=== PATIENT | female | born 1940 | race Caucasian/White ===

== ENCOUNTER 2017-10-26 23:46 | Emergency (ER) | payer OTHER ==
[~2017-10-26] VITALS: Ht 170.2 cm; Wt 98.2 kg
[~2017-10-26 23:46] MED LIST: ALLEGRA ALLERGY60 MG PO; ALLER-EASE180 MG PO; AMLODIPINE BESYL5 M1 PO; BENADRYL25 MG PO; CATAPRES0.1 MG PO; CEROVITE SENIO1 EACH PO; CIPRO500 MG PO; CLOTRIMAZOLE AF30 GM TP; COREG3.125 MG PO; DOXYCYCLINE 10100 MG PO; HYDROCHLOROTH12.5 M1 PO; JANUVIA100 MG PO; KETOCONAZOLE15 GM TOP; LAMISIL250 MG PO; LASIX 40 MG TAB40 M2 PO; LEVEMIR SUBQ; LEVOTHYROXIN0.025 MG PO; LIDOPATCH1 EACH TOP; LISINOPRIL20 MG PO; LOVASTATIN 20 M20 MG PO; MACROBID 100 M100 M1 PO; METFORMIN HCL500 MG PO; NORVASC5 MG PO; NOVOFINE 321 EACH SUBQ; NYAMYC15 GM TOP; OXYBUTYNIN 5 MG5 M2 PO; PERCOCET 5-3251 EACH PO; PRINZIDE 20-251 EACH PO; SYNTHROID50 MCG PO; TESSALON PERLE100 MG PO; TRAZODONE HCL50 MG PO; UNABLE TO REMEMBER; [UNRECOGNIZED DRUG - OTHER] PO
[2017-10-26] MEDS ORDERED: OXYBUTYNIN 5 MG5 M2 PO (23:57)
[2017-10-26] MEDS ORDERED: TESSALON PERLE100 MG PO (23:58)
[2017-10-26] MEDS ORDERED: TRAZODONE HCL50 MG PO (23:58)
[2017-10-26] MEDS ORDERED: ROBAFEN CF SYR118 M1 PO (23:59)
[2017-10-27] MEDS ORDERED: COREG25 MG PO
[2017-10-27] MEDS ORDERED: CEROVITE SENIO1 EACH PO (00:01)
[2017-10-27] MEDS ORDERED: ALLER-EASE180 MG PO (00:01)
[2017-10-27] MEDS ORDERED: HYDRALAZINE 2525 MG PO (00:02)
[2017-10-27] MEDS ORDERED: JANUVIA100 MG PO (00:03)
[2017-10-27] MEDS ORDERED: KETOCONAZOLE15 GM TOP (00:04)
[2017-10-27] MEDS ORDERED: LEVEMIR SUBQ (00:05)
[2017-10-27] MEDS ORDERED: NYSTATIN15 G2 TOP (00:06)
[2017-10-27 00:34] LABS: URINE BILIRUBIN NEGATIVE (Negative); URINE BLOOD NEGATIVE (Negative); URINE CLARITY CLEAR; URINE COLOR YELLOW; URINE GLUCOSE-RANDOM 3+ (Negative); URINE KETONES NEGATIVE (Negative); URINE LEUKOCYTES-REFLEX NEGATIVE (Negative); URINE NITRITE-REFLEX NEGATIVE (Negative); URINE PROTEIN 1+ (Negative); URINE UROBILINOGEN 0.2 E.U./dl (0.2-1.0)
[2017-10-27 02:04] VITALS: BP 128/82
== END 2017-10-27 02:07 | disposition home or self-care (01) ==
LOC: M.ERS 23:46
PROVIDERS: Personal Emergency Response Attendant
DX: R51 Headache (principal); E11.9 Type 2 diabetes mellitus without complications; I10 Essential (primary) hypertension; E78.5 Hyperlipidemia, unspecified; K64.9 Unspecified hemorrhoids; Z88.1 Allergy status to other antibiotic agents; Z88.2 Allergy status to sulfonamides; Z79.4 Long term (current) use of insulin; W18.39XA Other fall on same level, initial encounter; Y93.89 Activity, other specified; Y92.89 Other specified places as the place of occurrence of the external cause; Y99.8 Other external cause status

== ENCOUNTER 2017-11-22 08:29 | Inpatient (IN) | payer OTHER ==
[~2017-11-22] VITALS: Ht 170.2 cm; Wt 100.2 kg
[~2017-11-22 08:29] MED LIST changes: +COREG25 MG PO; +HYDRALAZINE 2525 MG PO; +NYSTATIN15 G2 TOP; +ROBAFEN CF SYR118 M1 PO
[2017-11-22 08:31] VITALS: BP 225/119
[2017-11-22] MEDS ORDERED: CERTAVITE SR-A1 EACH PO (08:45)
[2017-11-22] MEDS ORDERED: CALMOSEPTINE O3.5 GM TOP (08:46)
[2017-11-22] MEDS ORDERED: ROBAFEN100 MG/5 M PO (08:47)
[2017-11-22] MEDS ORDERED: MAPAP500 MG PO (08:47)
[2017-11-22 09:03] LABS: HEMOGLOBIN 15.3 gm/dL (12.0-15.0); MCH 23.9 pg (26.0-34.0); MCHC 31.2 g/dL (28.0-37.0); MCV 76.6 fL (80.0-100.0); MPV 8.8 fl. (7.2-11.1); NUCLEATED RBCS 0 /100WBC; PLATELET COUNT* 424 thou/uL (150-400); RDW-CV 19.5 % (10.5-14.5); WBC 14.2 thou/uL (4.0-11.0)
[2017-11-22 09:05] LABS: ANION GAP 9 mmol/L (7-16); APTT 27.3 Seconds (25.0-31.3); BUN 13 mg/dL (7-18); CALCIUM 9.4 mg/dL (8.5-10.1); CHLORIDE 100 mmol/L (98-107); CO2 27 mmol/L (21-32); CREATININE 0.8 mg/dL (0.6-1.3); GLUCOSE 333 mg/dL (70-99); INR 1.2; POTASSIUM 3.9 mmol/L (3.5-5.1); PROTIME 11.2 Seconds (9.20-11.50); SODIUM 136 mmol/L (136-145)
[2017-11-22 09:10] LABS: URINE BILIRUBIN NEGATIVE (Negative); URINE BLOOD TRACE (Negative); URINE CLARITY SL CLOUDY; URINE COLOR YELLOW; URINE GLUCOSE-RANDOM 3+ (Negative); URINE KETONES NEGATIVE (Negative); URINE LEUKOCYTES-REFLEX TRACE (Negative); URINE NITRITE-REFLEX NEGATIVE (Negative); URINE PROTEIN 3+ (Negative); URINE SPECIFIC GRAVITY 1.015 (1.005-1.030)
[2017-11-22 09:15] LABS: ALBUMIN 3.4 g/dL (3.4-5.0); ALKALINE PHOSPHATASE 85 U/L (46-116); NT-PRO BRAIN NAT PEPTIDE 3915 pg/mL (<300); SGOT 15 U/L (15-37); SGPT 18 U/L (30-65); TOTAL BILIRUBIN 0.8 mg/dL (<0.1-1.0); TOTAL PROTEIN 7.8 g/dL (6.4-8.2); TROPONIN-I LEVEL <0.06 ng/mL (<0.06)
[2017-11-22 09:27] LABS: BACTERIA-REFLEX >30 Many /HPF (None Seen); CRYSTALS None Seen /LPF (None Seen); MUCUS 0-3 Light strn/LPF (None Seen); SQUAMOUS >10 Many /LPF (0-3)
[2017-11-22 09:28] LABS: HYALINE CASTS 0-3 Few /LPF (None Seen); URINE RBC 3-10 Few /HPF (0-2); URINE WBC-REFLEX 6-15 Few /HPF (0-5)
[2017-11-22 09:30] LABS: ABSOLUTE EOSINOPHILS 0.4 thou/uL (0.0-0.7); ABSOLUTE LYMPHOCYTES 2.1 thou/uL (0.8-5.3); ABSOLUTE MONOCYTES 0.4 thou/uL (0.0-1.2); ABSOLUTE NEUTROPHILS 11.2 thou/uL (1.6-8.1)
[2017-11-22 09:31] LABS: ANISOCYTOSIS 1+; HYPOCHROMASIA 1+; PLATELET ESTIMATE INCREASED
[2017-11-22 10:29] VITALS: BP 220/115
[2017-11-22 20:05] VITALS: BP 145/55
[2017-11-23 08:00] VITALS: BP 165/63
--- NOTE | 2017-11-23 14:28 | EKG ---
[place] [address] ELECTROCARDIOGRAM REPORT Name: UMESH OSBORNE Room: [address] IN [facility]#: [id number] Admission: 11/22/17 Attend Phys: Yoanna Kelly MD Discharge: Date of : 38 Report #: [id number] THIS REPORT FOR: //name// [facility] ED Test Date: 2017-11-22 Test Time: 08:52:44 Pat Name: UMESH OSBORNE Department: Room: Gender: F Loader Technician: Elijah BUTTS : 1940 Requested By: Masoud Santana Order Number: [id number] MD: Zev Dickerson Measurements Intervals [place] Rate: 95 P: 0 NH: 42 QRS: -29 QRSD: 106 T: -25 QT: 371 QTc: 467 Interpretive Statements Sinus rhythm LVH by voltage Left anterior fascicular block Baseline wander in lead(s) II,III,aVF,V2,V3,V4,V5 Compared to ECG 05/28/2017 20:03:48 no significant changes noted Electronically Signed On 11-23-2017 14:28:05 CDT by Zev Dickerson [email or web address] <ELECTRONICALLY SIGNED> By: Zev Dickerson MD, FACC 11/23/17 1428 [id number] [id number] Zev Dickerson MD, FACC /EPI
[2017-11-23 16:08] VITALS: BP 158/68
[2017-11-23 20:00] VITALS: BP 151/40
[2017-11-24 09:35] VITALS: BP 190/72
[2017-11-24] MEDS ORDERED: CIPRO500 MG PO (09:46)
[2017-11-24 16:00] VITALS: BP 140/62
[2017-11-24 19:43] VITALS: BP 191/71
[2017-11-25 00:17] VITALS: BP 194/68
[2017-11-25 04:34] VITALS: BP 208/76
[2017-11-25 05:47] VITALS: BP 134/65
[2017-11-25 11:10] VITALS: BP 144/52
[2017-11-25 15:43] VITALS: BP 144/52
== END 2017-11-25 16:25 | DRG 689 ==
LOC: M.ERS 08:29 → M.TBA-ER 09:50 → M.3W 09:50
PROVIDERS: Family Medicine; ADMIT Internal Medicine
DX: N39.0 Urinary tract infection, site not specified (principal); G93.40 Encephalopathy, unspecified; R65.10 Systemic inflammatory response syndrome (SIRS) of non-infectious origin without acute organ dysfunction; E11.65 Type 2 diabetes mellitus with hyperglycemia; I16.0 Hypertensive urgency; I10 Essential (primary) hypertension; E78.5 Hyperlipidemia, unspecified; Z79.899 Other long term (current) drug therapy; Z79.4 Long term (current) use of insulin; Z79.84 Long term (current) use of oral hypoglycemic drugs; Z88.2 Allergy status to sulfonamides; Z90.710 Acquired absence of both cervix and uterus; Z98.51 Tubal ligation status; Z88.1 Allergy status to other antibiotic agents

== ENCOUNTER → 2019-01-20 | Emergency (ER) | payer OTHER ==
[~2019-01-20] VITALS: Ht 162.6 cm; Wt 81.7 kg
[~2019-01-20] MED LIST changes: +CALMOSEPTINE O3.5 GM TOP; +CERTAVITE SR-A1 EACH PO; +MAPAP500 MG PO; +ROBAFEN100 MG/5 M PO
[2019-01-20 05:41] LABS: URINE BILIRUBIN NEGATIVE (Negative); URINE BLOOD NEGATIVE (Negative); URINE CLARITY CLEAR; URINE COLOR YELLOW; URINE GLUCOSE-RANDOM TRACE (Negative); URINE KETONES NEGATIVE (Negative); URINE LEUKOCYTES NEGATIVE (Negative); URINE NITRITE NEGATIVE (Negative); URINE PROTEIN NEGATIVE (Negative)
[2019-01-20 07:31] LABS: ABSOLUTE NEUTROPHILS 13.8 thou/uL (1.6-8.1); HEMOGLOBIN 14.6 gm/dL (12.0-15.0); MCH 22.3 pg (26.0-34.0); MCV 71.7 fL (80.0-100.0); MPV 8.5 fl. (7.2-11.1); PLATELET COUNT* 437 thou/uL (150-400); PLATELET ESTIMATE INCREASED; RBC 6.56 mil/uL (4.20-5.00); WBC 15.7 thou/uL (4.0-11.0)
[2019-01-20 07:32] LABS: ABSOLUTE EOSINOPHILS 0.3 thou/uL (0.0-0.7); ABSOLUTE LYMPHOCYTES 1.4 thou/uL (0.8-5.3); ABSOLUTE MONOCYTES 0.5 thou/uL (0.0-1.2); ANISOCYTOSIS 1+; HYPOCHROMASIA 2+; MICROCYTES 2+
[2019-01-20 07:33] LABS: CALCIUM 9.3 mg/dL (8.5-10.1); CREATININE 0.7 mg/dL (0.6-1.3); POTASSIUM 3.6 mmol/L (3.5-5.1)
[2019-01-20 10:30] VITALS: BP 193/64
== END ==
LOC: M.ERS 04:59
DX: S01.81XA Laceration without foreign body of other part of head, initial encounter (principal); E11.9 Type 2 diabetes mellitus without complications; I10 Essential (primary) hypertension; E78.5 Hyperlipidemia, unspecified; Z79.4 Long term (current) use of insulin; Z90.710 Acquired absence of both cervix and uterus; Z88.1 Allergy status to other antibiotic agents; Z88.2 Allergy status to sulfonamides; W18.39XA Other fall on same level, initial encounter; Y92.89 Other specified places as the place of occurrence of the external cause; Y93.89 Activity, other specified; Y99.8 Other external cause status

== ENCOUNTER 2019-06-04 06:05 | Emergency (ER) | payer OTHER ==
[~2019-06-04] VITALS: Ht 170.2 cm; Wt 90.7 kg
[2019-06-04] MEDS ORDERED: NOVOLOG100 UNIT/1 SUBQ (06:22)
[2019-06-04] MEDS ORDERED: LOPERAMIDE2 MG PO (06:23)
[2019-06-04] MEDS ORDERED: NYSTATIN 100,0015 G1 TOP (06:25)
[2019-06-04 07:30] LABS: ABSOLUTE BASOPHILS 0.1 thou/uL (0.0-0.2); ABSOLUTE EOSINOPHILS 0.4 thou/uL (0.0-0.7); ABSOLUTE MONOCYTES 0.7 thou/uL (0.0-1.2); ABSOLUTE NEUTROPHILS 8.7 thou/uL (1.6-8.1); BASOPHILS 0.6 %; EOSINOPHILS 3.8 %; HEMOGLOBIN 15.7 gm/dL (12.0-15.0); LYMPHOCYTES 9.5 %; MCH 24.1 pg (26.0-34.0); MCHC 32.1 g/dL (28.0-37.0); MCV 75.2 fL (80.0-100.0); MONOCYTES 6.7 %; MPV 8.6 fl. (7.2-11.1); NUCLEATED RBCS 0 /100WBC; PLATELET COUNT* 375 thou/uL (150-400); POLYS 79.4 %; RBC 6.52 mil/uL (4.20-5.00)
[2019-06-04 07:44] LABS: CALCIUM 9.2 mg/dL (8.5-10.1); CREATININE 0.9 mg/dL (0.6-1.3)
[2019-06-04 07:50] LABS: INR 1.1; PROTIME 10.8 Seconds (9.20-11.50)
[2019-06-04 07:54] LABS: TOTAL BILIRUBIN 0.4 mg/dL (<0.1-1.0)
[2019-06-04 13:18] VITALS: BP 163/56
--- NOTE | 2019-06-04 13:30 | EKG ---
[place] [address] ELECTROCARDIOGRAM REPORT Name: UMESH OSBORNE Room: [facility]#: [id number] Admission: 06/04/19 Attend Phys: Discharge: Date of : 38 Report #: [id number] THIS REPORT FOR: //name// [facility] ED Test Date: 2019-06-04 Test Time: 06:21:41 Pat Name: UMESH OSBORNE Department: Room: Gender: F Count Team Clerk: : 1940 Requested By: Raji Casiano Order Number: [id number] MD: Philip Park Measurements Intervals [place] Rate: 61 P: 14 SC: 202 QRS: -23 QRSD: 105 T: -1 QT: 447 QTc: 451 Interpretive Statements Sinus rhythm LVH with secondary repolarization abnormality Anterior infarct, old possible Compared to ECG 11/22/2017 08:52:44 Early repolarization now present Myocardial infarct finding now present Left anterior fascicular block no longer present Electronically Signed On 06-04-2019 13:30:02 MICROSTRATEGY ARCHITECT DEVELOPER by Philip Park [email or web address] <ELECTRONICALLY SIGNED> By: Philip Park MD, [facility] 06/04/19 1330 Philip Park MD, [facility] /EPI
== END 2019-06-04 13:24 | disposition home or self-care (01) ==
LOC: M.ERS 06:05
PROVIDERS: Emergency Medicine
DX: S00.83XA Contusion of other part of head, initial encounter (principal); E11.9 Type 2 diabetes mellitus without complications; K64.9 Unspecified hemorrhoids; I10 Essential (primary) hypertension; E78.5 Hyperlipidemia, unspecified; Z88.1 Allergy status to other antibiotic agents; Z90.710 Acquired absence of both cervix and uterus; Z98.51 Tubal ligation status; Z88.2 Allergy status to sulfonamides; Z79.4 Long term (current) use of insulin; W18.39XA Other fall on same level, initial encounter; Y93.89 Activity, other specified; Y92.128 Other place in nursing home as the place of occurrence of the external cause; Y99.8 Other external cause status

== ENCOUNTER 2019-06-15 09:22 | Inpatient (IN) | payer OTHER ==
[~2019-06-15] VITALS: Ht 162.6 cm; Wt 89.2 kg
[2019-06-15] VITALS (15 sets, daily range): BP systolic 85–218; BP diastolic 43–87
--- NOTE | ~2019-06-15 | CON ---
[address] [address] CONSULTATION Name: UMESH OSBORNE Room: [address] ADM IN .R.#: [id number] Admission: 06/15/19 Attend Phys: Mercy Chairez Discharge: Date of : 38 Report #: [id number] THIS REPORT FOR: //name// CC: Robert Guzmán DATE OF SERVICE: 06/15/2019 HISTORY OF PRESENT ILLNESS: This is a 78-year-old female patient who was seen by me as a stroke protocol. I am not able to get much history from the patient because she is aphasic. I called the patient's durable power of patent attorney, I talked to the nurses, I talked to the documentation coordinator and I talked to Emergency Room physician, Dr. Boothe. This patient apparently has deteriorating quality of the life. She is having progressive incoordination and weakness in the lower extremities. This is going on for a couple of years. She had a fall and she hit her head, but that did not cause any injury. She has a living will and she has expressed it to the durable power of patent attorney that she does not want any aggressive treatment. She is admitted with right-sided facial droop and looks like pretty significant aphasia. REVIEW OF SYSTEMS: Is from the record and durable power of patent attorney and Emergency Room physician. She is having progressive weakness in the lower extremities. She had hysterectomy and tubal ligation in the past. She has a history of diabetes and hypertension. A 14-point review of system was carried out and this was her relevant 14-point history. She does not appear to be complaining of any eye, ENT, cardiac, respiratory, GI, , musculoskeletal, constitutional, dermatological, hematological, psychiatric, throat or allergic symptom. PAST MEDICAL HISTORY: The best I can tell is negative for stroke. DICTATION ENDS HERE By: 1101 [id number] Posadas MD /nt
[~2019-06-15 09:22] MED LIST changes: +LOPERAMIDE2 MG PO; +NOVOLOG100 UNIT/1 SUBQ; +NYSTATIN 100,0015 G1 TOP
[2019-06-15 09:57] LABS: ABSOLUTE BASOPHILS 0.1 thou/uL (0.0-0.2); ABSOLUTE EOSINOPHILS 0.6 thou/uL (0.0-0.7); ABSOLUTE LYMPHOCYTES 1.5 thou/uL (0.8-5.3); ABSOLUTE MONOCYTES 0.6 thou/uL (0.0-1.2); ABSOLUTE NEUTROPHILS 13.3 thou/uL (1.6-8.1); BASOPHILS 0.8 %; EOSINOPHILS 3.6 %; HEMATOCRIT 52.7 % (37.0-47.0); HEMOGLOBIN 16.6 gm/dL (12.0-15.0); LYMPHOCYTES 9.1 %; MCH 23.6 pg (26.0-34.0); MCHC 31.4 g/dL (28.0-37.0); MCV 74.9 fL (80.0-100.0); MONOCYTES 3.9 %; MPV 8.7 fl. (7.2-11.1); NUCLEATED RBCS 0 /100WBC; PLATELET COUNT* 533 thou/uL (150-400); POLYS 82.6 %; RBC 7.04 mil/uL (4.20-5.00); RDW-CV 20.1 % (10.5-14.5)
[2019-06-15 10:12] LABS: INR 1.1; PROTIME 11.4 Seconds (9.20-11.50)
[2019-06-15 10:14] LABS: CALCIUM 9.3 mg/dL (8.5-10.1); CREATININE 1.2 mg/dL (0.6-1.3); POTASSIUM 4.1 mmol/L (3.5-5.1)
[2019-06-15 10:18] LABS: ALBUMIN 3.4 g/dL (3.4-5.0); TOTAL BILIRUBIN 0.6 mg/dL (<0.1-1.0); TOTAL PROTEIN 7.4 g/dL (6.4-8.2)
[2019-06-15 10:27] LABS: PLATELET ESTIMATE INCREASED
[2019-06-15 10:31] LABS: ANISOCYTOSIS 1+; POIKILOCYTOSIS 1+
--- NOTE | 2019-06-15 10:53 | NUR ---
SEE STROKE DOCUMENTATION FOR INTERVENTIONS, MEDICATION, AND VITAL SIGNS
--- NOTE | 2019-06-15 11:17 | NUR ---
tpa finished at 1111
--- NOTE | 2019-06-15 19:27 | NUR ---
THIS SHRINK PIT SUPERVISOR ASSUMED CARE OF PT AT 1215 PT PRESENTED WITH STROKE AND WAS TPA AT 1020 FINISHED AT 1111. UPON ARRIVAL PT NIH WAS 11 LAST NIH AT 1800 WAS 5 PT S/S ARE IMPROVING SAW BY SPEECH ADVANCED TO [facility] SOFT CHOPPED DIET. PT HAD R AC IV ACCESS PULLED OUT DURING SPEECH EVAL TWO IVS PLACED L AND R FOREARM 18G BY INFUSION NURSE [facility] FOR FRIDAY
[2019-06-16] VITALS (32 sets, daily range): BP systolic 130–218; BP diastolic 52–94
--- NOTE | 2019-06-16 04:33 | NUR ---
ASSUMED CARE AT 1910H,ON RA AND TOLERATED.PT WAS ALERT/ORIENTED SOMETIMES AND RESTLESS.LATEST NIHS 7.PRN MEDS FOR HTN GIVEN.PT DRUNK WATER WITH ASPIRATION PRECAUTION.NO DISTRESS AND NO BLEEDING NOTED.TALKED TO HER SON (LEATHA) LAST NIGHT,HE JUST KNEW HIS MOTHER WAS HERE.ACCORDING TO HIM, HE WILL VISIT HER THIS MONING.CONTINUE MONITORING AND TOWARD GOALS.
[2019-06-16 05:30] LABS: ALBUMIN 3.2 g/dL (3.4-5.0); ALKALINE PHOSPHATASE 75 U/L (46-116); ANION GAP 13 mmol/L (7-16); BUN 15 mg/dL (7-18); CALCIUM 9.3 mg/dL (8.5-10.1); CHLORIDE 103 mmol/L (98-107); CHOLESTEROL 132 mg/dL (<200); CO2 25 mmol/L (21-32); CREATININE 0.9 mg/dL (0.6-1.3); GLUCOSE 223 mg/dL (70-99); HDL CHOLESTEROL 41 mg/dL (>40); LDL CHOLESTEROL 68 mg/dL (<100); POTASSIUM 3.4 mmol/L (3.5-5.1); SGOT 16 U/L (15-37); SGPT 18 U/L (30-65); SODIUM 141 mmol/L (136-145); TC:HDL 3.2 Ratio (Not establshd); TOTAL BILIRUBIN 0.8 mg/dL (<0.1-1.0); TOTAL PROTEIN 6.9 g/dL (6.4-8.2); TRIGLYCERIDE 117 mg/dL (<150); VLDL 23 mg/dL (<40)
[2019-06-16 05:37] LABS: SERUM ASSESSMENT Clear
--- NOTE | 2019-06-16 15:35 | NUR ---
PATIENT DOES NOT FOLLOW COMMANDS. CT AND MRI DONE PT QUITE ACTIVE DURING MRI. REMAINS ON CARDENE GTT AT 8MG/HR. RAISING SELF UP IN BED.FAMILY AT BEDSIDE.
--- NOTE | 2019-06-16 19:02 | NUR ---
SPOKE WITH PT DPOA VIA TABLET SHE WAS REACHED BY ENRIQUE STRICKLAND EXTENDED FAMILY. INFORMED HER OF MY PHONE CONVERSATION WITH DR TAPIA ABOUT POSSIBLE PALATIVE CARE DO TO SEVERITY OF CVA. B P CONTROLLED WITH CARDENE GTT. MORRIS REPLACED AFTER MRI WITH NON TEMP MORRIS. STILL MOVING LEFT ARM AND LEG.
[2019-06-17] VITALS (8 sets, daily range): BP systolic 145–169; BP diastolic 54–86
[2019-06-17 04:06] LABS: HEMATOCRIT 52.9 % (37.0-47.0); HEMOGLOBIN 16.7 gm/dL (12.0-15.0); MCH 23.9 pg (26.0-34.0); MCHC 31.6 g/dL (28.0-37.0); MCV 75.5 fL (80.0-100.0); MPV 8.5 fl. (7.2-11.1); RBC 7.01 mil/uL (4.20-5.00); RDW-CV 20.1 % (10.5-14.5); WBC 23.6 thou/uL (4.0-11.0)
[2019-06-17 04:15] LABS: CALCIUM 9.1 mg/dL (8.5-10.1); CREATININE 1.3 mg/dL (0.6-1.3)
[2019-06-17 04:51] LABS: POTASSIUM 4.9 mmol/L (3.5-5.1)
--- NOTE | 2019-06-17 05:51 | NUR ---
ASSUMED CARE AT 1910H, ON NC AT 2LPM AND TOLERATED.CARDIPINE AT 15MG/HR.EARLY SHIFT PT FOLLOWED COMMANDS.PT STILL STUPOROUS,EYE OPENING TO PAIN OR VERBAL AND LOCALIZED PAIN.RIGHT SIDE EXTRIMITIES NO MOVEMENT.LATEST BRIEF NIHS IS 22.SON CALLED LAST NIGHT AND ADVICE TO COME IN THE MORNING TO TALK TO DOCTORS.CONTINUE MONITORING AND TOWARD GOALS.
--- NOTE | 2019-06-17 11:13 | NUR ---
PT.HAD CVA ON 06/15. LIVES IN LTC AT [facility]. PER SAMPSON,RN, PT.WOULD BE IN HER WC MOST OF THE TIME AT [facility] BUT WOULD PLAY CARDS WITH FRIENDS, WAS ABLE TO MAKE NEEDS KNOWN. PER NURSING, PT.HAS 2 SONS. ONE IS IN HALFWAY, THE OTHER IS SCHIZOPHRENIC. HER DPOA IS JAVI PENNY, A FRIEND. SHE IS CURRENTLY OUT OF THE COUNTRY. SHE HAS SPOKEN WITH NURSING AND PTS COUSIN. ROYAL CALLED ARON SANTANA/[facility]. SHE SAID SHE SPOKE WITH JAVI YESTERDAY. SHE WOULD LIKE [facility]. ROYAL LEFT VM ON JAVI'S PHONE. NEED A FAX NUMBER THAT HOSPICE COULD FAX PAPERWORK TO, FOR DPOA, TO SIGN. ALSO TO VERIFY THAT THAT IS WHAT SHE WANTS FOR PT. AND SAMPSON ,RN UPDATED.
--- NOTE | 2019-06-17 12:18 | EKG ---
[place] [address] ELECTROCARDIOGRAM REPORT Name: UMESH OSBORNE Room: [address] ADM IN .R.#: [id number] Admission: 06/15/19 Attend Phys: Mercy Chairez Discharge: Date of : 38 Report #: [id number] THIS REPORT FOR: //name// [facility] ED Test Date: 2019-06-15 Test Time: 10:20:35 Pat Name: UMESH OSBORNE Department: Room: [facility] Gender: F Seasoner: : 1940 Requested By: Francisco Boothe Order Number: [id number] MD: Philip Park Measurements Intervals [place] Rate: 67 P: -63 VT: 211 QRS: -25 QRSD: 100 T: 257 QT: 401 QTc: 424 Interpretive Statements Sinus rhythm LVH with secondary repolarization abnormality Baseline wander in lead(s) I,II,aVR Compared to ECG 06/04/2019 06:21:41 Myocardial infarct finding no longer present Electronically Signed On 06-17-2019 12:17:47 THEATER SET PRODUCTION DESIGNER by Philip Park [email or web address] <ELECTRONICALLY SIGNED> By: Philip Park MD, [facility] 06/17/19 1217 1020 1020 Philip Park MD, [facility] /EPI
--- NOTE | 2019-06-17 15:00 | NUR ---
ANNA BRADEN AND PTS COUSIN, COMMUNICATING WITH SHANELL,JAVI, VIA TABLET. SHE IS WANTING TO KNOW IF HOSPICE CAN EMAIL HER DOCUMENTS. ROYAL CALLED TANVIR AT [facility] [phone] AND FAXED REFERRAL,FACE SHEET,COPY OF SHANELL AND JAVI'S EMAIL ADDRESS. WAS NOTIFIED BY TANVIR/DAQUAN AT THIS TIME THEY RECEIVED CONSENT FROM PT.'S DPOA FOR HOSPICE. NOTIFIED [facility] THAT A BED AND O2 WAS BEING ORDERED BY HOSPICE. PT.CAN RETURN THERE WHEN EQUIPMENT ARRIVES. FAXED [facility] H&P,DC SUMMARY AND MEDS. PT.TO GO BY AMBULANCE. SAMPSON WILL CALL REPORT AND TO FIND OUT IF EQUIPMENT HAS BEEN DELIVERED.
--- NOTE | 2019-06-17 18:53 | NUR ---
PATIENT OBTUNDED NOW RETURNING TO [facility] FOR HOSPICE CARE. REPORT GIVEN TO TRACEE.
[2019-06-18 02:06] LABS: GLYCOHEMOGLOBIN (HGB A1C) 7.3 % (4.8-5.6)
== END 2019-06-17 19:13 | disposition hospice, home (50) | DRG 61 ==
LOC: M.ERS 09:22 → M.ICU 10:41 → M.TBA-ER 10:41 → M.ICU 11:03
PROVIDERS: Emergency Medicine Emergency Medical Services; Internal Medicine; ADMIT Internal Medicine
DX: I63.9 Cerebral infarction, unspecified (principal); G93.41 Metabolic encephalopathy; I16.1 Hypertensive emergency; R47.01 Aphasia; E78.5 Hyperlipidemia, unspecified; E03.9 Hypothyroidism, unspecified; I10 Essential (primary) hypertension; E11.9 Type 2 diabetes mellitus without complications; Z90.710 Acquired absence of both cervix and uterus; Z91.81 History of falling; Z79.899 Other long term (current) drug therapy; Z79.4 Long term (current) use of insulin; Z79.84 Long term (current) use of oral hypoglycemic drugs; Z88.2 Allergy status to sulfonamides; Z88.8 Allergy status to other drugs, medicaments and biological substances; Z82.49 Family history of ischemic heart disease and other diseases of the circulatory system; Z99.3 Dependence on wheelchair; Z51.5 Encounter for palliative care